=== PATIENT | female | born 1990 | race Caucasian/White ===

== ENCOUNTER 2017-11-17 13:01 | Emergency (ER) | payer OTHER ==
[~2017-11-17] VITALS: Ht 165.1 cm; Wt 59.9 kg
[2017-11-17] MEDS ORDERED: DEXAMETHASONE 4 MG TABLET PO ONE (13:30)
[2017-11-17] MEDS ORDERED: IBUPROFEN 600 MG TABLET PO ONE (13:30)
--- NOTE | 2017-11-17 13:34 | NUR ---
Patient discharged to home in stable conditon. Written and verbal after care instructions given. Patient verbalizes understanding of instructions.pt walks in steady gait. pt able to swallow pills, pt with
[2017-11-17] MEDS ORDERED: DEXAMETHASONE 4 MG TABLET ONE (13:48)
[2017-11-17] MEDS ORDERED: IBUPROFEN 600 MG TABLET ONE (13:48)
== END 2017-11-17 13:38 | disposition home or self-care (01) ==
LOC: ER 13:01
DX: J03.90 Acute tonsillitis, unspecified (principal)
CPT/HCPCS: 99283; A4663; J8540